=== PATIENT | female | born 1945 | race Caucasian/White ===

== ENCOUNTER → 2025-01-04 13:30 | Outpatient (CLI) | payer MEDICARE, SELFPAY ==
[2025-01-04 15:04] LABS: Add Manual Diff / Slide Review NO; Hematocrit 40.1 % (36-46); Hemoglobin 13.7 g/dL (12.0-16.0); Lymphocytes Absolute Auto 1700 /uL (1100-4500); Mean Corpuscular HGB Conc 34.1 % (30-36); Mean Corpuscular Hemoglobin 32.4 PG (26-34); Mean Corpuscular Volume 95.0 fL (80-100); Platelet Count 286 X10^3/uL (150-400)
[2025-01-04 15:14] LABS: Alanine Aminotransferase 17 IU/L (<35); Albumin 4.6 g/dL (3.5-5.0); Albumin Globulin Ratio 1.7 (1.0-2.8); Alkaline Phosphatase 91 U/L (38-126); Blood Urea Nitrogen 14 mg/dL (7-17); Calcium 8.9 mg/dL (8.4-10.2); Carbon Dioxide 27 mmol/L (22-32); Chloride 100 mmol/L (98-107); Cholesterol 244 mg/dL (140-199); Estimated Glomerular Filt Rate > 60 mL/min (>60); Globulin 2.7 g/dL (1.7-4.1); Glucose 84 mg/dL (70-99); HEMOLYSIS 17 (0-50); Potassium 4.7 mmol/L (3.4-5.1); Sodium 136 mmol/L (137-145); Total Protein 7.3 g/dL (6.3-8.2); Triglycerides 106 mg/dL (35-150)
[2025-01-04 15:23] LABS: HDL Cholesterol 155 mg/dL (40-60)
[2025-01-04 15:32] LABS: Vitamin D 25 Hydroxy (D3) 45.7 ng/mL (30.0-100.0)
[2025-01-04 15:42] LABS: TSH w/ Reflex to FT4 0.55 uIU/mL (0.47-4.68)
== END ==
PROVIDERS: PCP Family Medicine; Referring Provider Family Medicine; Visit Provider Family Medicine
DX: M48.00 Spinal stenosis, site unspecified (principal); E03.9 Hypothyroidism, unspecified; M81.0 Age-related osteoporosis without current pathological fracture; Z86.39 Personal history of other endocrine, nutritional and metabolic disease; Z76.89 Persons encountering health services in other specified circumstances
CPT/HCPCS: 36415; 80053; 80061; 82306; 84443; 85025